=== PATIENT | male | born 1970 | race Caucasian/White ===

== ENCOUNTER 2017-01-21 12:15 | Emergency (ER) | payer OTHER, MEDICARE ==
[~2017-01-21] VITALS: Ht 177.8 cm; Wt 87.4 kg
[~2017-01-21 12:15] MED LIST: CITA-48 PO; OXYC15TA PO; RISP1SOL15 PO; ZOFR4TAB3 SL
[2017-01-21 12:24] VITALS: BP 163/112; PULSE 63; RESP 16; TEMP 97.6; O2SAT 100
[2017-01-21] MEDS ORDERED: OXYC30TA PO (12:32)
--- NOTE | 2017-01-21 13:11 | PD ---
HPI Chief Complaint: Abdominal Pain Time Seen by Provider: 12:32 Travel History International Travel<30 days: No Contact w/Intl Traveler<30days: No Traveled to known affect area: No History of Present Illness HPI This is a 46 year old male who presents to the emergency department with 2 hours of abdominal pain, sharp, constant, moderate severity, associated with nausea, vomiting or diarrhea. Pt. reports this has never happened to him before. He denies any fevers or chills. Pt. takes 30 mg of oxycontin daily with no recent changes to medications. PFSH Past Medical History Diminished Hearing: No Musculoskeletal: Yes (CHRONIC PAIN) Influenza Vaccination: Yes ?: Not Past Surgical History Neurologic Surgery: Yes (BACK) Social History Alcohol Use: Yes (SOCIAL) Tobacco Use: Yes (2- PPD) Substance Use: No Allergies-Medications (Allergen,Severity, Reaction): Coded Allergies: No Known Allergies (Unverified , 01/21/17) Reported Meds & Prescriptions Reported Meds & Active Scripts Active Reported Oxycodone (Oxycodone HCl) 30 Mg Tab 30 Mg PO Q8HR Review of Systems Except as stated in HPI: all other systems reviewed are Neg Physical Exam Narrative GENERAL:Uncomfortable appearing. SKIN: Focused skin assessment warm and dry. HEAD: Atraumatic. Normocephalic. EYES: Pupils equal and round. No injection or drainage. ENT: Moist mucous membranes NECK: Trachea midline. CARDIOVASCULAR: Regular rate and rhythm. No murmur appreciated. RESPIRATORY: Clear to auscultation. Breath sounds equal bilaterally. GASTROINTESTINAL: Abdomen soft, tender to palpation in the periumbilical area with some guarding. MUSCULOSKELETAL: No obvious deformities. NEUROLOGICAL: Awake and alert. No obvious cranial nerve deficits. Moving all extremities. PSYCHIATRIC: Appropriate mood and affect; insight and judgment normal. Data Data Last Documented VS Vital Signs Date Time Temp Pulse Resp B/P Pulse Ox O2 Delivery O2 Flow Rate FiO2 01/21/17 12:24 97.6 63 16 163/112 100 Orders Complete Blood Count With Diff (01/21/17 13:18) Comprehensive Metabolic Panel (01/21/17 13:18) ^ Insert Iv (01/21/17 13:18) Lipase (01/21/17 13:18) Ct Abd/Pel W Iv Contrast(Rout) (5/16/17 ) Hydromorphone Pf Inj (Dilaudid Pf Inj) (01/21/17 13:30) Sodium Chlor 0.9% 1000 Ml Inj (Ns 1000 M (01/21/17 13:30) Ondansetron Inj (Zofran Inj) (01/21/17 13:30) Urinalysis - C+S If Indicated (01/21/17 13:18) Iohexol 350 Inj (Omnipaque 350 Inj) (01/21/17 13:54) Labs Laboratory Tests Test 01/21/17 01/21/17 13:31 13:37 White Blood Count 12.7 TH/MM3 Red Blood Count 5.15 MIL/MM3 Hemoglobin 16.0 GM/DL Hematocrit 47.2 % Mean Corpuscular Volume 91.7 FL Mean Corpuscular Hemoglobin 31.0 PG Mean Corpuscular Hemoglobin 33.8 % Concent Red Cell Distribution Width 12.5 % Platelet Count 354 TH/MM3 Mean Platelet Volume 7.5 FL Neutrophils (%) (Auto) 80.8 % Lymphocytes (%) (Auto) 11.0 % Monocytes (%) (Auto) 5.2 % Eosinophils (%) (Auto) 0.3 % Basophils (%) (Auto) 2.7 % Neutrophils # (Auto) 10.3 TH/MM3 Lymphocytes # (Auto) 1.4 TH/MM3 Monocytes # (Auto) 0.7 TH/MM3 Eosinophils # (Auto) 0.0 TH/MM3 Basophils # (Auto) 0.3 TH/MM3 CBC Comment DIFF FINAL Differential Comment Sodium Level 137 MEQ/L Potassium Level 3.8 MEQ/L Chloride Level 103 MEQ/L Carbon Dioxide Level 26.4 MEQ/L Anion Gap 8 MEQ/L Blood Urea Nitrogen 9 MG/DL Creatinine 0.75 MG/DL Estimat Glomerular Filtration 112 ML/MIN Rate Random Glucose 99 MG/DL Calcium Level 9.4 MG/DL Total Bilirubin 0.5 MG/DL Aspartate Amino Transf 19 U/L (AST/SGOT) Alanine Aminotransferase 25 U/L (ALT/SGPT) Alkaline Phosphatase 77 U/L Total Protein 8.0 GM/DL Albumin 3.9 GM/DL Lipase 106 U/L Urine Collection Type VOIDED Urine Color YELLOW Urine Turbidity HAZY Urine pH 6.0 Urine Specific [place] 1.020 Urine Protein TRACE mg/dL Urine Glucose (UA) NEG mg/dL Urine Ketones 15 mg/dL Urine Occult Blood LARGE Urine Nitrite NEG Urine Bilirubin NEG Urine Leukocyte Esterase NEG Urine RBC 100-200 /hpf Urine WBC 0-2 /hpf Urine Bacteria FEW /hpf Microscopic Urinalysis Comment CULT NOT INDICATED Urine Collection Time 1337 MDM Medical Decision Making Medical Screen Exam Complete: Yes Emergency Medical Condition: Yes Interpretation(s) Afebrile, no tachycardia, hypertensive Mild leukocytosis Electrolytes are reassuring Lipase is normal Urinalysis: Large amount of blood CT abdomen and pelvis: No acute process Differential Diagnosis Gastroenteritis, pancreatitis, kidney stone, acute opiate withdrawal Narrative Course This is a 46-year-old male who presents to the emergency department with diffuse abdominal pain that started abruptly 2 hours prior to arrival in the ER. Patient was placed on a monitor and an IV was established. Labs demonstrate a mild leukocytosis. Urinalysis demonstrates a large amount of blood. CT abdomen and pelvis was negative for acute surgical etiology of patient's symptoms. I suspect patient may have passed a kidney stone given the abrupt onset of his pain and the blood in his urine although there is no confirmation of this on CT. it also possible that he is presenting in opiate withdrawal. Patient feels better after IV pain medication. He was advised to follow-up with a urologist for cystoscopy regarding his hematuria and he was told that this may reflect bladder cancer. Diagnosis Primary Impression: Abdominal pain Qualified Code: R10.84 - Generalized abdominal pain Additional Impression: Hematuria Patient Instructions: General Instructions Additional Instructions: If you develop severe or worsening abdominal pain, fever>100.4, persistent vomiting or inability to eat or drink return to the emergency department immediately. It is very important that you see urologist because you had blood in your urine and back and reflect bladder cancer. Follow up with your primary care physician in 1-2 days for a check-up. Med/Other Pt SpecificInfo: Prescription(s) given Scripts Ondansetron Odt (Zofran Odt)4 Mg Tab4 Mg SL Q6HR PRN (Nausea/Vomiting) #15 TAB Prov:Vibha Del Castillo MD 01/21/17 Disposition: 01 DISCHARGE HOME Condition: Stable Vibha Del Castillo MD January 21, 2017 13:11
[2017-01-21] MEDS ORDERED: ONDANSETRON HCL 4 MG/2 ML VIAL IV PUSH ONE (13:30)
[2017-01-21] MEDS ORDERED: HYDROmorphone HCL PF 1 MG/ML VIAL IV PUSH ONE (13:30)
[2017-01-21] MEDS ORDERED: SODIUM CHLOR 0.9% 1000 ML INJ 1,000 ML IV ONE (13:30)
[2017-01-21 13:47] LABS: BLOOD, URINE LARGE (NEG); GLUCOSE,URINE NEG (NEG); KETONE, URINE 15 mg/dL (NEG); NITRITE,URINE NEG (NEG)
[2017-01-21 13:50] LABS: AUTOMATED NEUTROPHIL # 10.3 TH/MM3 (1.8-7.7); BASOPHIL # 0.3 TH/MM3 (0-0.2); BASOPHIL % 2.7 % (0.0-2.0); EOSINOPHIL % 0.3 % (0.0-4.0); HEMATOCRIT 47.2 % (39.0-51.0); HEMO FLAGS DIFF FINAL; LYMPHOCYTE # 1.4 TH/MM3 (1.0-4.8); MEAN CELL VOLUME 91.7 FL (80.0-100.0); MEAN CORPUSCULAR HGB CONC 33.8 % (32.0-36.0); MONO % 5.2 % (0.0-8.0); NEUT % 80.8 % (16.0-70.0); PLATELET COUNT 354 TH/MM3 (150-450); RED BLOOD COUNT 5.15 MIL/MM3 (4.50-5.90); RED CELL DISTRIBUTION WIDTH 12.5 % (11.6-17.2); WHITE BLOOD COUNT 12.7 TH/MM3 (4.0-11.0)
[2017-01-21] MEDS ORDERED: IOHEXOL 350 MG/ML 10 ML VIAL (for RAD DIAG) IV ONE (13:54)
[2017-01-21 13:58] LABS: CHLORIDE 103 MEQ/L (98-107); POTASSIUM 3.8 MEQ/L (3.5-5.1); SODIUM (NA) 137 MEQ/L (136-145)
[2017-01-21 13:59] LABS: METHOD OF COLLECTION VOIDED; URINE COLOR YELLOW (YELLW/STRAW); WBC, URINE 0-2 /hpf (0-5)
[2017-01-21 14:00] LABS: BACTERIA, URINE FEW /hpf; COMMENT (UR) CULT NOT INDICATED; CULTURE IF INDICATED CULT NOT INDICATED; RBC, URINE 100-200 /hpf (0-3)
[2017-01-21 14:02] LABS: ANION GAP 8 MEQ/L (5-15); BICARBONATE 26.4 MEQ/L (21.0-32.0); BLOOD UREA NITROGEN 9 MG/DL (7-18)
[2017-01-21 14:05] LABS: ALT (GPT) 25 U/L (12-78); AST (GOT) 19 U/L (15-37); GLOMERULAR FILTRATION RATE 112 ML/MIN (>89)
[2017-01-21 14:07] LABS: TOTAL BILIRUBIN ADULT 0.5 MG/DL (0.2-1.0)
[2017-01-21 14:08] LABS: ALKALINE PHOSPHATASE 77 U/L (45-117)
--- NOTE | 2017-01-21 14:44 | RADHPO ---
EXAM DATE/TIME: 01/21/2017 13:44 [facility] COMPARISON: No previous studies available for comparison. INDICATIONS : Diffuse abdomen pain, nausea and vomiting since this late this morning. IV CONTRAST: 95 cc Omnipaque 350 (iohexol) IV ORAL CONTRAST: No oral contrast ingested. RADIATION DOSE: 13.74 CTDIvol (mGy) MEDICAL HISTORY : Chronic back pain SURGICAL HISTORY : None. ENCOUNTER: Initial ACUITY: 1 day PAIN SCALE: 6/10 LOCATION: TECHNIQUE: Volumetric scanning of the abdomen and pelvis was performed. Using automated exposure control and ad justment of the mA and/or kV according to patient size, radiation dose was kept as low as reasonably achievable to obtain optimal diagnostic quality images. FINDINGS: Examination of the lung bases demonstrates no abnormality. No pleural fluid is identified. No pulmona ry nodules are present. The liver and spleen are normal in size and no focal defects are identified. The gallbladder and pancreas are unremarkable. No intrahepatic or extrahepatic ductal dilatation is s een. The adrenal glands and kidneys appear normal bilaterally. No hydronephrosis or mass lesions are identified. There is a single simple cyst in the left kidney measuring 2 cm in the upper pole. Examination of the pelvis demonstrates no evidence of free fluid or pelvic mass. No abnormally enlarg ed inguinal or retroperitoneal lymph nodes are present. The bladder is unremarkable. There is diverti culosis without evidence of diverticulitis. CONCLUSION: 1. No evidence of acute abdominal or pelvic process. No masses are identified. 2. Diverticulosis without evidence of diverticulitis. Camron Reyes MD on January 21, 2017 at 14:01 Board Certified Radiologist. This report was verified electronically.
[2017-01-21] MEDS ORDERED: ZOFR4TAB3 SL (15:18)
== END 2017-01-21 15:40 | disposition home or self-care (01) ==
LOC: PHED 12:15
DX: R10.84 Generalized abdominal pain (principal); R31.9 Hematuria, unspecified; D72.829 Elevated white blood cell count, unspecified; F17.200 Nicotine dependence, unspecified, uncomplicated; Z87.39 Personal history of other diseases of the musculoskeletal system and connective tissue
CPT/HCPCS: 74177; 80053; 81001; 83690; 85025; 96361; 96374; 96375; 99284; J1170; J2405; J7030; Q9967